=== PATIENT | male | born 1990 | race Caucasian/White ===

== ENCOUNTER 2016-08-27 14:57 | Emergency (ER) | payer SELFPAY ==
--- NOTE | 2016-08-27 16:47 | ED.PDOC ---
History of Present Illness - General Chief Complaint: ENT Problem Stated Complaint: left ear pain Time Seen by Provider: 08/27/16 16:41 Source: patient Exam Limitations: no limitations - History of Present Illness Initial Comments: Jorge Lea 25 y/o male stated that the last 5-7 days had been having left earache.He stated [place] underwater in [place] the [place].Denies ear trauma,nasal congestion or cough. Timing/Duration: other - 5-7 days Severity: moderate EENT Location: ear (L) Prearrival Treatment: no prearrival treatment Presenting Symptoms: see hpi Improving Factors: nothing Worsening Factors: nothing Associated Symptoms: ear drainage Allergies/Adverse Reactions: Allergies NO KNOWN ALLERGY Allergy (Verified 02/24/15 20:38) Home Medications: Ambulatory Orders Amoxicillin [Amoxil] 1,000 mg PO BID #60 cap 08/27/16 Ciprofloxacin (Otic) [Otiprio] 6 % TP BID #1 lorie 08/27/16 Naproxen [Naprosyn] 500 mg PO BID PRN #20 tab 08/27/16 Review of Systems - Review of Systems Constitutional: States: no symptoms reported EENTM: States: see HPI Respiratory: States: no symptoms reported Cardiology: States: no symptoms reported Gastrointestinal/Abdominal: States: no symptoms reported Genitourinary: States: no symptoms reported Musculoskeletal: States: no symptoms reported Skin: States: no symptoms reported Neurological: States: no symptoms reported Endocrine: States: no symptoms reported Hematologic/Lymphatic: States: no symptoms reported Past Medical History (General) - Patient Medical History Hx Seizures: No Hx Diabetes: No Hx Cancer: No - Vaccination History Hx Tetanus, Diphtheria Vaccination: No Family Medical History - Family History Father Family History: Unknown Physical Exam - Physical Exam General Appearance: Alert, Comfortable, No apparent distress Eye Exam: bilateral normal Ear Exam: right ear: auricle normal, canal normal, TM normal, left ear: TM perforation, evidence of perforation - exudate, discharge Nasal Exam: normal inspection Throat Exam: normal mouth inspection, pharynx normal Neck: non-tender, full range of motion, normal inspection Cardiovascular/Respiratory: regular rate, rhythm, no M/R/G, normal peripheral pulses Abdominal Exam: non-tender, no organomegaly Neurologic: alert, oriented x 3 Skin Exam: normal color Departure - Departure Clinical Impression: Otitis externa of left ear Qualifiers: Otitis externa type: unspecified type Chronicity: acute Qualified Code(s): H60.502 - Unspecified acute noninfective otitis externa, left ear Otitis media of left ear Qualifiers: Otitis media type: suppurative Chronicity: unspecified Qualified Code(s): H66.42 - Suppurative otitis media, unspecified, left ear Time of Disposition: 16:59 Disposition: Discharge to Home or Self Care Condition: Good Departure Forms: ED Discharge - Pt. Copy, Patient Portal Self Enrollment Instructions: Otitis Externa, Middle Ear Infection, DI for Otitis Externa Prescriptions: Amoxicillin [Amoxil] 1,000 mg PO BID #60 cap Ciprofloxacin (Otic) [Otiprio] 6 % TP BID #1 lorie Naproxen [Naprosyn] 500 mg PO BID PRN #20 tab PRN Reason: Pain Home Medications: Ambulatory Orders Amoxicillin [Amoxil] 1,000 mg PO BID #60 cap 08/27/16 Ciprofloxacin (Otic) [Otiprio] 6 % TP BID #1 lorie 08/27/16 Naproxen [Naprosyn] 500 mg PO BID PRN #20 tab 08/27/16 Additional Instructions: Need to get primary md for follow up with vulnerability researcher
[2016-08-28 07:35] VITALS: BP 132/81; TEMP 98.7; O2SAT 97
== END 2016-08-27 17:15 | disposition home or self-care (01) ==
LOC: ER 14:57
DX: H60.502 Unspecified acute noninfective otitis externa, left ear (principal); H66.002 Acute suppurative otitis media without spontaneous rupture of ear drum, left ear